=== PATIENT | female | born 1990 | race Hispanic/Latino ===

== ENCOUNTER 2017-12-11 09:47 | Emergency (ER) | payer BC ==
[~2017-12-11] VITALS: Ht 154.9 cm; Wt 68.0 kg
[~2017-12-11 09:47] MED LIST: CLONAZEPAM2 MG PO; LEVORA-281 EACH PO
[2017-12-11] MEDS ORDERED: DEXAMETHASONE SOD PHOS 10 MG/1 ML VIAL INJ ONE (10:30)
[2017-12-11] MEDS ORDERED: DIPHENHYDRAMINE HCL 25 MG CAP PO ONE (10:30)
[2017-12-11] MEDS ORDERED: FAMOTIDINE 20 MG TAB PO ONE (10:30)
[2017-12-11 10:59] VITALS: BP 132/72
== END 2017-12-11 11:02 | disposition home or self-care (01) ==
LOC: ER 09:47
DX: R21 Rash and other nonspecific skin eruption (principal); T78.1XXA Other adverse food reactions, not elsewhere classified, initial encounter; F41.9 Anxiety disorder, unspecified
CPT/HCPCS: 99283; J1100

== ENCOUNTER 2018-01-09 03:50 | Emergency (ER) | payer BC ==
[~2018-01-09] VITALS: Ht 154.9 cm; Wt 68.0 kg
[2018-01-09] MEDS ORDERED: SODIUM CHLORIDE 0.9% 1000ML 1,000 ML IV STA (04:04)
[2018-01-09] MEDS ORDERED: ASPIRIN 81 MG CHEW TAB PO ONE (04:15)
[2018-01-09 04:32] LABS: BASOPHILS % 0.5 % (0.0-1.0); EOSINOPHILS # (AUTO) 0.2 (0.0-0.4); EOSINOPHILS % 2.4 % (0.0-6.0); HEMATOCRIT 41.3 % (34.2-44.1); HEMOGLOBIN 14.3 g/dL (12.0-16.0); LYMPHOCYTES # (AUTO) 2.3 (1.0-3.2); LYMPHOCYTES % 37.7 % (18.0-39.1); MEAN CORPUSCULAR HEMOGLOBIN 31.9 pg (28-32); MEAN CORPUSCULAR HGB CONC 34.6 g/dL (31-35); MEAN CORPUSCULAR VOLUME 92.2 fL (81-99); MONOCYTES # (AUTO) 0.7 (0.2-0.8); MONOCYTES % 10.8 % (4.4-11.3); NEUTROPHILS % 48.4 % (38.7-80.0); PLATELET COUNT 287 x10e3/uL (140-360); RED BLOOD COUNT 4.48 x10e6/uL (3.6-5.1); RED CELL DISTRIBUTION WIDTH 11.9 % (11.7-14.4)
[2018-01-09 04:50] LABS: ALANINE AMINOTRANSFERASE 51 IU/L (0-55); ALBUMIN 4.7 g/dL (3.5-5.0); ALBUMIN/GLOBULIN RATIO 1.5 (0.8-2.0); ALKALINE PHOSPHATASE 57 IU/L (40-150); ANION GAP 16.6 mmol/L (8-16); BLOOD UREA NITROGEN 13 mg/dL (7-26); BUN/CREATININE RATIO 19 (6-25); CARBON DIOXIDE 22 mmol/L (22-29); CHLORIDE 105 mmol/L (98-107); CREATINE KINASE 105 IU/L (29-168); EST GLOMERULAR FILTRATION RATE > 60 ML/MIN (60-); GLUCOSE 110 mg/dL (74-118); POTASSIUM 3.6 mmol/L (3.5-5.1); SODIUM 140 mmol/L (136-145)
[2018-01-09 05:12] LABS: FREE THYROXINE INDEX 2.1024 (1.4-3.8); THYROID STIMULATING HORMONE 3.293 uIU/mL (0.350-4.940)
--- NOTE | 2018-01-09 05:13 | Diagnostic Imaging Report ---
Examination: CT head without contrast Clinical Indication: Tremors, shaking; tachycardia. Technique: Transaxial noncontrast images from the skull base through the vertex were obtained. Sagittal and coronal reformatted images were done. Dose modulation, iterative reconstruction, and/or weight based adjustment of the mA/kV was utilized to reduce the radiation dose to as low as reasonably achievable. Comparison: None. Findings: Scalp: No abnormalities. Bones: Intact. No fractures. No blastic or lytic lesions. Brain sulci: Appropriate for patient's age. Ventricles: Normal in size and configuration. No hydrocephalus. Extra-axial space: No abnormalities. Parenchyma: No abnormal densities. No masses, hemorrhage, or acute or chronic cortical based vascular insults. Suprasellar region: No abnormalities. Craniocervical junction: The foramen magnum is patent. No Chiari one malformation. Impression: No intracranial abnormality. Signed by: Dr. Vale Martin M.D. on 01/09/2018 5:10 AM
[2018-01-09] MEDS ORDERED: LORAZEPAM INJ 2 MG/ML VIAL ONE (05:16)
[2018-01-09] MEDS ORDERED: LORAZEPAM INJ 2 MG/ML VIAL IV ONE (05:30)
== END 2018-01-09 06:49 | disposition home or self-care (01) ==
LOC: ER 03:50
DX: F41.1 Generalized anxiety disorder (principal)
CPT/HCPCS: 36415; 70450; 80053; 82550; 82553; 84436; 84443; 84479; 84484; 85025; 93005; 96374; 99284; J2060; J7030

== ENCOUNTER 2020-01-28 10:09 | Emergency (ER) | payer SELFPAY ==
[~2020-01-28] VITALS: Ht 154.9 cm; Wt 70.3 kg
[2020-01-28] MEDS ORDERED: BELLADONNA ALK/PHENOBARBITAL 5 ML UDC PO ONE (10:30)
[2020-01-28] MEDS ORDERED: MAGNESIUM/ALUMINUM/SIMETHICONE 30 ML UDC PO ONE (10:30)
[2020-01-28] MEDS ORDERED: LIDOCAINE VISC 2% SOLN 15 ML UDC PO ONE (10:30)
[2020-01-28] MEDS ORDERED: LORAZEPAM 1 MG TAB PO ONE (10:45)
--- NOTE | 2020-01-28 12:14 | Emergency Department Note ---
History of Present Illnes History of Present Illness Chief Complaint: General Medicine Complaints History of Present Illness This is a 29 year old female PT STATES SHE BELIEVES SHE IS HAVING ANOTHER ANXIETY ATTACK. PT STATES SHE BELIEVES THAT THIS ANXIETY ATTACK WAS PRECIPITATED FROM "MOLE" SHE ATE LAST NIGHT. PT STATES SHE STARTED HAVING ALOT OF BELCHING AND ACID REFLUX. PT STATES THAT ALL THE BURPING CAUSED HER TO HAVE PALPITATIONS, AND NOW SHE IS HAVING AN ANXIETY ATTACK. PT STATES SHE HAS A HX OF ANXIETY AND PTSD FROM "ROUGH CHILDHOOD". 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 PT STATES HER BIGGEST COMPLAINT IS THE "CONSTANT BURPING AND PALPITATIONS". PT NOTES SHE ALSO WENT TO URGENT CARE TODAY, AND THEN CAME HERE "THEY DIDN'T DO ANYTHING.". Historian: Patient Arrival Mode: Car Gold Letterer Required: No Onset (how long ago): hour(s) Radiation: Reports non-radiation Severity: moderate Onset quality: sudden Timing of current episode: intermittent Progression: waxing and waning Chronicity: chronic Context: Denies recent illness Relieving factors: none Exacerbating factors: none Associated symptoms: Reports denies other symptoms; Denies chest pain, Denies cough, Denies fever/chills, Denies shortness of breath Past Medical/Family History Physician Review I have reviewed the patient's past medical and family history. Any updates have been documented here. Past Medical History Recent Fever: No Clinical Suspicion of Infectio: No New/Unexplained Change in Ment: No Past Medical History: Anxiety Other Medical History: ANXIETY Past Surgical History: None Social History Smoking Cessation: Never Smoker Counseling Performed: No Alcohol Use: None Any Illegal Drug Use: No TB Exposure/Symptoms: No Physically hurt or threatened: No Family History Family history of heart diseas: No Other Last Tetanus: UNK Any Pre-Existing Lines (PICC,: No Review of Systems Review of Systems Constitutional: Reports no symptoms EENTM: Reports no symptoms Cardiovascular: Reports no symptoms Respiratory: Reports no symptoms Gastrointestinal: Reports as per HPI Genitourinary: Reports no symptoms Musculoskeletal: Reports no symptoms Integumentary: Reports no symptoms Neurological: Reports no symptoms Psychological: Reports anxiety Endocrine: Reports no symptoms Hematological/Lymphatic: Reports no symptoms Physical Exam Related Data Allergies: Uncoded Allergies: PORK (Allergy, Unknown, 12/11/17) WATER BASED CONTRAST (Allergy, Unknown, 12/11/17) Triage Vital Signs Vital Signs Date Time Temp Pulse Resp B/P (MAP) Pulse Ox O2 Delivery O2 Flow Rate FiO2 01/28/20 10:19 99.7 105 16 147/95 100 Room Air Vital signs reviewed: Yes Physical Exam CONSTITUTIONAL Constitutional: Present well-developed, Present well-nourished HENT HENT: Present normocephalic, Present atraumatic, Present oropharynx clear/moist, Present nose normal HENT L/R: Present left ext ear normal, Present right ext ear normal EYES Eyes: Reports PERRL, Reports conjunctivae normal NECK Neck: Present ROM normal PULMONARY Pulmonary: Present effort normal, Present breath sounds normal CARDIOVASCULAR Cardiovascular: Present regular rhythm, Present heart sounds normal, Present capillary refill normal, Present normal rate GASTROINTESTINAL Abdominal: Present soft, Present nontender, Present bowel sounds normal GENITOURINARY Genitourinary: Present exam deferred SKIN Skin: Present warm, Present dry MUSCULOSKELETAL Musculoskeletal: Present ROM normal NEUROLOGICAL Neurological: Present alert, Present oriented x 3, Present no gross motor or sensory deficits PSYCHOLOGICAL Psychological: Present mood/affect normal, Present judgement normal, Present other (ANXIOUS) Assessment & Plan Medical Decision Making MDM ANXIETY, NO CP/SOB Reassessment Reassessment IMPROVED WITH ATIVAN PO, GI COCKTAIL. DC HOME, ATARAX, OTC PEPCID COMPLETE, F/U PCP Assessment & Plan Final Impression: (1) Anxiety (2) GERD (gastroesophageal reflux disease) Depart Disposition: HOME, SELF-CARE Last Vital Signs Date Time Temp Pulse Resp B/P (MAP) Pulse Ox O2 Delivery O2 Flow Rate FiO2 01/28/20 10:19 99.7 105 16 147/95 100 Room Air Home Meds Reported Medications Levonorgestrel-Eth Estradiol (LEVORA-28) 1 Each Tablet, 1 TAB PO DAILY 03/06/13 Medications in the ED Magnesium Aluminum Silicate 30 ml ONCE ONCE PO Last administered on 01/28/20at 10:55; Admin Dose 30 ML; Start 01/28/20 at 10:30; Stop 01/28/20 at 10:40; Status DC Belladonna Alkaloids/ Phenobarbital 10 ml ONCE ONCE PO Last administered on 01/28/20at 10:55; Admin Dose 10 ML; Start 01/28/20 at 10:30; Stop 01/28/20 at 10:40; Status DC Lidocaine HCl 5 ml ONCE ONCE PO Last administered on 01/28/20at 10:55; Admin Dose 5 ML; Start 01/28/20 at 10:30; Stop 01/28/20 at 10:40; Status DC Lorazepam 1 mg ONCE ONCE PO Last administered on 01/28/20at 10:55; Admin Dose 1 MG; Start 01/28/20 at 10:45; Stop 01/28/20 at 10:46; Status DC MOON BENNETT MD Jan 28, 2020 12:14
[2020-01-28 12:26] VITALS: BP 128/74
--- OUTSIDE RECORDS SUMMARY | 2020-01-29 10:04 | XMS REPORT | Continuity of Care Document ---
Author Author [facility] t Organization [facility] Address [address] [place] [address] Phone Unavailable Care Team Providers Care Mine Engineering Supervisor Name Role Phone David DURHAM PCP Rico PARADA Unavailable Payers Payer Name Policy Type Policy Number Effective Date Expiration Date [facility] Ppo [id number] 2015 00:00:00 [facility] Problems Condition Name Condition Details Condition Category Status Onset Date Resolution Date Last Treatment Date Treating Clinician Comments Source Anxiety Problem Active [facility] Gastroesophageal reflux disease Problem Active [facility] Allergies, Adverse Reactions, Alerts Allergy Name Allergy Type Status Severity Reaction(s) Onset Date Inacti ve Date Treating Clinician Comments Source iodine DA Active [place] 2018-12-05 00:00:00 [facility] pork derived (porcine) FA Active SV 2018-12-05 00:00:00 [facility] PORK Allergy to substance Active 2017-12-11 00:00:00 [facility] WATER BASED CONTRAST Allergy to substance Active 2017-12-11 00:00:00 [facility] iodine DA Active MO 2014-08-02 00:00:00 [facility] Social History Social Habit Start Date Stop Date Quantity Comments Source Sex Assigned At 1990 00:00:00 1990 00:00:00 Female [facility] Medications Ordered Medication Name Filled Medication Name Start Date Stop Da te Current Medication? Ordering Clinician Indication Dosage Frequency Signature (SIG) Comments Components Source Levonorgestrel-Eth Estradiol (Levora-28) 1 Each TABLET Levonorgestrel-Eth Estradiol (Levora-28) 1 Each TABLET Yes 1 Lalito simpson [facility] Clonazepam Clonazepam 2015-05-02 00:00:00 No 2 Zoila ly [facility] Vital Signs Vital Name Observation Time Observation Value Comments Source Heart Rate 2020-01-28 12:26:00 101 /min [facility] Respiratory rate 2020-01-28 12:26:00 16 /min [facility] BP Systolic 2020-01-28 12:26:00 128 mm[Hg] [facility] BP Diastolic 2020-01-28 12:26:00 74 mm[Hg] [facility] Oxygen saturation by Pulse oximetry 2020-01-28 12:26:00 99 /min [facility] Weight 2020-01-28 10:19:00 155 [lb_av] [facility] BMI (Body Mass Index) 2020-01-28 10:19:00 29.3 kg/m2 [facility] Procedures This patient has no known procedures. Plan of Care Planned Activity Planned Date Details Comments Source Instructions Generalized Anxiety Disorder [facility] Instructions Heartburn [facility] Encounters Start Date/Time End Date[facility] En[facility] ID Source 2020-01-28 10:21:00 2020-01-28 12:28:00 Departed Emergency Room [facility] [id number] [facility] 2017-12-11 09:47:00 2017-12-11 11:02:00 Departed Emergency Room [facility] [id number] [facility] Results Test Description Test Time Test Comments Results Result Comments Source CT BRAIN WO 2018-01-09 05:08:00 [facility] [address] [address] Patient Name: ANGELIKA HONEYCUTT MR #: [id number] : 1990 Age/Sex: 27/F Req #: [id number] Adm Physician: Ordered by: LESLIE PARADA MD Report #: [id number] Location: ER Room/Bed: Procedure: [id number] CT/CT BRAIN WO Exam Date: Exam Time: REPORT STATUS: Signed Examination: CT head without contrast Clinical Indication: Tremors, shaking; tachycardia. Technique: Transaxial noncontrast images from the skull base through the vertex were obtained. Sagittal and coronal reformatted images were done. Dose modulation, iterative reconstru ction, and/or weight based adjustment of the mA/kV was utilized to reduce the radiation dose to as low as reasonably achievable. Comparison: None. Findings: Scalp: No abnormalities. Bones: Intact. No fractures. No blastic or lytic lesions. Brain sulci: Appropriate for patient's age. Ventricles: Normal in size and configuration. No hydrocephalus. Extra- axial space: No abnormalities. Parenchyma: No abnormal densities. No masses, hemorrhage, or acute or chronic cortical based vascular insults. Suprasellar region: No abnormalities. Craniocervical junction: The foramen magnum is patent. No Chiari one malformation. Impression: No intracranial abnormality. Signed by: Dr. Vale Martin M.D. on 01/09/2018 5:10 AM Dictated By: VALE RACHEL MD 9 Transcribed By: JAMES on 01/09/18509 COPY TO: LESLIE PARADA MD
== END 2020-01-28 12:28 | disposition home or self-care (01) ==
LOC: ER 10:21
DX: F41.9 Anxiety disorder, unspecified (principal); K21.9 Gastro-esophageal reflux disease without esophagitis
CPT/HCPCS: 99282

== ENCOUNTER 2020-02-02 17:53 | Emergency (ER) | payer SELFPAY ==
[~2020-02-02] VITALS: Ht 154.9 cm; Wt 70.3 kg
[2020-02-02] MEDS ORDERED: PANTOPRAZOLE 40 MG 10ML VIAL IV STA (18:08)
[2020-02-02] MEDS ORDERED: ONDANSETRON HCL INJ 2MG/ML 2ML 2 MG/ML VIAL IV STA (18:08)
--- NOTE | 2020-02-02 18:12 | Emergency Department Note ---
History of Present Illnes History of Present Illness Chief Complaint: Abdominal Complaints History of Present Illness This is a 29 year old female WITH COMPLAINTS OF NAUSEA, AND GERD X 1 WEEK; PATIENT STATES THAT SHE WAS SEEN LAST FRIDAY FOR THE SAME AND GIVEN PEPCID. PATIENT STATES THAT TODAY SHE HAD DIARRHEA, NAUSEA, AND BELCHING. PATIENT APPEARS ANXIOUS, RESP EVEN AND NONLABORED, RESP EVEN AND NONLABORED, RATES PAIN /10 . Historian: Patient Arrival Mode: Car Dental Assistant Teacher Required: No Onset (how long ago): day(s) (1) Location: upper abd Quality: n/v/d, pain, belching Radiation: Reports non-radiation Severity: moderate Onset quality: gradual Duration (how long): day(s) (7) Timing of current episode: constant Progression: worsening Chronicity: new Context: Denies recent illness, Denies recent surgery Relieving factors: none Exacerbating factors: none Associated symptoms: Reports nausea/vomiting (diarrhea) Treatments prior to arrival: none Past Medical/Family History Physician Review I have reviewed the patient's past medical and family history. Any updates have been documented here. Past Medical History Recent Fever: Yes Clinical Suspicion of Infectio: Yes New/Unexplained Change in Ment: No Past Medical History: Anxiety Other Medical History: ANXIETY Past Surgical History: Cholecysctectomy Social History Smoking Cessation: Never Smoker Alcohol Use: None Any Illegal Drug Use: No Physically hurt or threatened: No Family History Family history of heart diseas: No Other Last Tetanus: UNK Review of Systems Review of Systems Constitutional: Reports no symptoms EENTM: Reports no symptoms Cardiovascular: Reports no symptoms Respiratory: Reports no symptoms Gastrointestinal: Reports as per HPI Genitourinary: Reports no symptoms Musculoskeletal: Reports no symptoms Integumentary: Reports no symptoms Neurological: Reports no symptoms Psychological: Reports no symptoms Endocrine: Reports no symptoms Hematological/Lymphatic: Reports no symptoms Physical Exam Related Data Allergies: Coded Allergies: Pork/Porcine Containing Products (Verified Allergy, Severe, 02/02/20) gadoterate meglumine (Verified Allergy, Severe, 02/02/20) Uncoded Allergies: PORK (Allergy, Unknown, 12/11/17) WATER BASED CONTRAST (Allergy, Unknown, 12/11/17) Triage Vital Signs Vital Signs Date Time Temp Pulse Resp B/P (MAP) Pulse Ox O2 Delivery O2 Flow Rate FiO2 02/02/20 18:00 100.3 130 20 154/107 100 Room Air Vital signs reviewed: Yes Physical Exam CONSTITUTIONAL Constitutional: Present well-developed, Present well-nourished, Present other (anxious) HENT HENT: Present normocephalic, Present atraumatic, Present oropharynx clear/moist, Present nose normal HENT L/R: Present left ext ear normal, Present right ext ear normal EYES Eyes: Reports PERRL, Reports conjunctivae normal NECK Neck: Present ROM normal PULMONARY Pulmonary: Present effort normal, Present breath sounds normal CARDIOVASCULAR Cardiovascular: Present regular rhythm, Present heart sounds normal, Present capillary refill normal, Present tachycardia (125) GASTROINTESTINAL Abdominal: Present soft, Present bowel sounds normal, Present tender (epigastric) GENITOURINARY Genitourinary: Present exam deferred SKIN Skin: Present warm, Present dry MUSCULOSKELETAL Musculoskeletal: Present ROM normal NEUROLOGICAL Neurological: Present alert, Present oriented x 3, Present no gross motor or sensory deficits PSYCHOLOGICAL Psychological: Present mood/affect normal, Present judgement normal Results Laboratory Laboratory Laboratory Tests Test 02/03/20 02:26 02/02/20 22:22 02/02/20 21:40 02/02/20 19:15 Lactic Acid Level 1.8 mmol/L (0.5-2.0) 3.8 mmol/L (0.5-2.0) Coronavirus (PCR) Not detected (NOTDETECTED) Urine Color Yellow (YELLOW) Urine Clarity Clear (CLEAR) Urine pH 6 (5 - 7) Urine Specific [place] 1.020 (1.010-1.025) Urine Protein Negative (NEGATIVE) Urine Glucose (UA) Negative (NEGATIVE) Urine Ketones 1+ (NEGATIVE) Urine Blood Negative (NEGATIVE) Urine Nitrite Negative (NEGATIVE) Urine Bilirubin Negative (NEGATIVE) Urine Urobilinogen 0.2 mg/dL (0.2 - 1) Urine Leukocyte Esterase Negative (NEGATIVE) Urine RBC 0-5 /HPF (0-5) Urine WBC 0-5 /HPF (0-5) Urine Epithelial Cells Rare /LPF (NONE) Urine Bacteria None /HPF (NONE) Urine Opiates Screen Negative (NEGATIVE) Urine Methadone Screen Negative (NEGATIVE) Urine Barbiturates Screen Negative (NEGATIVE) Urine Phencyclidine Screen Negative (NEGATIVE) Urine Amphetamines Screen Negative (NEGATIVE) Urine Methamphetamines Screen Negative (NEGATIVE) Urine Benzodiazepines Screen Negative (NEGATIVE) Urine Cocaine Screen Negative (NEGATIVE) Urine Cannabinoids Screen Negative (NEGATIVE) Test 02/02/20 18:24 02/02/20 18:21 Influenza Virus Types A,B Antigen Negative (NEGATIVE) White Blood Count 5.46 x10e3/uL (4.8-10.8) Red Blood Count 4.72 x10e6/uL (3.6-5.1) Hemoglobin 14.7 g/dL (12.0-16.0) Hematocrit 43.4 % (34.2-44.1) Mean Corpuscular Volume 91.9 fL (81-99) Mean Corpuscular Hemoglobin 31.1 pg (28-32) Mean Corpuscular Hemoglobin Concent 33.9 g/dL (31-35) Red Cell Distribution Width 11.9 % (11.7-14.4) Platelet Count 319 x10e3/uL (140-360) Neutrophils (%) (Auto) 52.2 % (38.7-80.0) Lymphocytes (%) (Auto) 38.8 % (18.0-39.1) Monocytes (%) (Auto) 7.5 % (4.4-11.3) Eosinophils (%) (Auto) 0.9 % (0.0-6.0) Basophils (%) (Auto) 0.4 % (0.0-1.0) Neutrophils # (Auto) 2.9 (2.1-6.9) Lymphocytes # (Auto) 2.1 (1.0-3.2) Monocytes # (Auto) 0.4 (0.2-0.8) Eosinophils # (Auto) 0.1 (0.0-0.4) Basophils # (Auto) 0.0 (0.0-0.1) Absolute Immature Granulocyte (auto 0.01 x10e3/uL (0-0.1) Sodium Level 141 mmol/L (136-145) Potassium Level 3.5 mmol/L (3.5-5.1) Chloride Level 104 mmol/L (98-107) Carbon Dioxide Level 22 mmol/L (22-29) Anion Gap 18.5 mmol/L (8-16) Blood Urea Nitrogen 8 mg/dL (7-26) Creatinine 0.70 mg/dL (0.57-1.11) Estimat Glomerular Filtration Rate > 60 ML/MIN (60-) BUN/Creatinine Ratio 11 (6-25) Glucose Level 105 mg/dL (74-118) Lactic Acid Level 2.9 mmol/L (0.5-2.0) Calcium Level 10.3 mg/dL (8.4-10.2) Total Bilirubin 0.3 mg/dL (0.2-1.2) Aspartate Amino Transf (AST/SGOT) 41 IU/L (5-34) Alanine Aminotransferase (ALT/SGPT) < 6 IU/L (0-55) Alkaline Phosphatase 56 IU/L (40-150) Total Protein 9.0 g/dL (6.5-8.1) Albumin < 0.4 g/dL (3.5-5.0) Globulin 8.6 g/dL (2.3-3.5) Albumin/Globulin Ratio 0.0 (0.8-2.0) Amylase Level 46 U/L (25-125) Lipase 21 U/L (8-78) Thyroid Stimulating Hormone (TSH) 1.372 uIU/mL (0.350-4.940) Free Thyroxine Index 2.0256 (1.4-3.8) Thyroxine (T4) 8.54 ug/dL (4.5-10.9) Triiodothyronine (T3) Uptake 23.72 % (22.5-37.0) Human Chorionic Gonadotropin, Qual Negative (NEGATIVE) Lab results reviewed: Yes Imaging Imaging results reviewed: Yes Impressions Procedure: [id number] CT/CT ABDOMEN/PELVIS W Exam Date: 02/02/20 Exam Time: 2013 REPORT STATUS: Signed EXAM: CT Abdomen and Pelvis WITH contrast INDICATION: ^abd pain ^[id number] ^2013 ^Y COMPARISON: None. TECHNIQUE: Abdomen and pelvis were scanned utilizing a multidetector helical scanner from the lung base to the pubic symphysis after administration of IV contrast. Coronal and sagittal reformations were obtained. Dose modulation, iterative reconstruction, and/or weight based adjustment of the mA/kV was utilized to reduce the radiation dose to as low as reasonably achievable. Routine protocol was performed. Scan was performed when during portal venous phase. IV CONTRAST: 100 mL of Isovue-370 ORAL CONTRAST: None COMPLICATIONS: None RADIATION DOSE: Total DLP: 706.39 mGy*cm Estimated effective dose: (DLP x 0.015 x size factor) mSv CTDIvol has been reviewed. It is below the limits set by the Radiation Protocol Committee (RPC). FINDINGS: LINES and TUBES: None. LOWER THORAX: Unremarkable HEPATOBILIARY: No focal hepatic lesions. No biliary ductal dilation. GALLBLADDER: Surgically absent. SPLEEN: No splenomegaly. PANCREAS: No focal masses or ductal dilatation. ADRENALS: No adrenal nodules KIDNEYS/URETERS: Kidneys enhance symmetrically. No hydronephrosis. No cystic or solid mass lesions. No stones. GI TRACT: No abnormal distention, wall thickening, or evidence of bowel obstruction. Appendix is normal. PELVIC ORGANS/BLADDER: Unremarkable. Retroverted uterus. LYMPH NODES: No lymphadenopathy. VESSELS: Unremarkable. PERITONEUM / RETROPERITONEUM: No free air or fluid. BONES: Unremarkable. SOFT TISSUES: Unremarkable. IMPRESSION: 1. No acute inflammatory process in the abdomen/pelvis. Signed by: Dr. Brent Cm MD on 02/02/2020 9:15 PM Dictated By: BRENT CM MD 14 Transcribed By: JAMES on 02/02/202114 COPY TO: CAROLYN JUNIOR MD~ Procedure: [id number] DX/CHEST SINGLE (PORTABLE) Exam Date: 02/02/20 Exam Time: 1834 REPORT STATUS: Signed EXAMINATION: CHEST SINGLE (PORTABLE) INDICATION: Fever. COMPARISON: None FINDINGS: TUBES and LINES: None. LUNGS: Patchy density in the right lung base may represent atelectasis versus developing infection in the proper clinical setting. Recommend chest PA and lateral views of patient's condition permits. PLEURA: No pleural effusion or pneumothorax. HEART AND MEDIASTINUM: The cardiomediastinal silhouette is unremarkable. BONES AND SOFT TISSUES: No acute osseous lesion. Soft tissues are unremarkable. UPPER ABDOMEN: No free air under the diaphragm. IMPRESSION: Right lung base atelectasis versus developing infection. Recommend chest PA and lateral views of patient's condition permits. Signed by: Dr. Nancy Vogt M.D. on 02/02/2020 6:58 PM Dictated By: NADJA VOGT MD, MD 57 Transcribed By: JAMES on 02/02/201857 COPY TO: CAROLYN JUNIOR MD~ Procedures 12 Lead ECG Interpretation ECG Interpretation : ECG: ECG 1 Dental Assistant Teacher: Interpreted by ED physician Date: Feb 02, 2020 Time: 18:11 Rhythm: sinus tachycardia Rate: tachycardia BPM: 120 QRS axis: normal ST segments normal: Yes T waves normal: Yes Q waves: V1 Clinical Impression: abnormal ECG Assessment & Plan Medical Decision Making MDM pt with upper abd pain, n/v/d and having anxiety cbc, cmp, thyroid panel, amylase, lipase, ua, cxr, ekg ordered to eval for arrhythmia, pancreatitis, hyperthryoid, pneumonia, electrolyte abnormality, uti zofran 4 mg iv ordered protonix 40 mg iv ordered ativan 1 mg iv ordered ns 1 liter bolus iv ordered PT WITH ELEVATED LACTIC ACID, NO SOURCE OF INFECTION, LACTIC ACIDOSIS IS NOT INFECTION RELATED after hydration lactic acid returned to normal Assessment & Plan Final Impression: (1) Volume depletion (2) Lactic acidosis (3) Anxiety (4) GERD (gastroesophageal reflux disease) Depart Disposition: HOME, SELF-CARE Last Vital Signs Date Time Temp Pulse Resp B/P (MAP) Pulse Ox O2 Delivery O2 Flow Rate FiO2 02/02/20 18:00 100.3 130 20 154/107 100 Room Air Home Meds Reported Medications Levonorgestrel-Eth Estradiol (LEVORA-28) 1 Each Tablet, 1 TAB PO DAILY 03/06/13 Medications in the ED Pantoprazole Sodium 40 mg NOW STAT IV ; Start 02/02/20 at 18:08; Stop 02/01 at 18:09; Status UNV Ondansetron HCl 4 mg NOW STAT IV ; Start 02/02/20 at 18:08; Stop 02/02/20 at 18:09; Status UNV Sodium Chloride 1,000 ml @ 999 mls/hr Q1H1M ONCE IV ; Start 02/02/20 at 18:15; Stop 02/02/20 at 19:15 CAROLYN JUNIOR MD Feb 02, 2020 18:12
[2020-02-02] MEDS ORDERED: LORAZEPAM INJ 2 MG/ML VIAL IV ONE (18:15)
[2020-02-02] MEDS ORDERED: ACETAMINOPHEN 325 MG TAB PO ONE (18:15)
[2020-02-02] MEDS ORDERED: SODIUM CHLORIDE 0.9% 1000ML 1,000 ML IV ONE ×3 (18:15→22:15)
--- OUTSIDE RECORDS SUMMARY | 2020-02-02 18:33 | XMS REPORT | Continuity of Care Document ---
Author Author [facility] t Organization [facility] Address [address] [place] [address] Phone Unavailable Care Team Providers Care Dock Attendant Name Role Phone David DURHAM PCP Rico PARADA Unavailable Payers Payer Name Policy Type Policy Number Effective Date Expiration Date [facility] Ppo [id number] 2015 00:00:00 [facility] Problems Condition Name Condition Details Condition Category Status Onset Date Resolution Date Last Treatment Date Treating Clinician Comments Source Anxiety Problem Active [facility] Gastroesophageal reflux disease Problem Active [facility] Allergies, Adverse Reactions, Alerts Allergy Name Allergy Type Status Severity Reaction(s) Onset Date Inacti ve Date Treating Clinician Comments Source iodine DA Active [place] 2018-12-05 00:00:00 [facility] pork derived (porcine) FA Active SV 2018-12-05 00:00:00 [facility] PORK Allergy to substance Active 2017-12-11 00:00:00 [facility] WATER BASED CONTRAST Allergy to substance Active 2017-12-11 00:00:00 [facility] iodine DA Active [place] 2014-08-02 00:00:00 [facility] Social History Social Habit Start Date Stop Date Quantity Comments Source Sex Assigned At [birth year] 00:00:00 Female [facility] Medications Ordered Medication Name Filled Medication Name Start Date Stop Da te Current Medication? Ordering Clinician Indication Dosage Frequency Signature (SIG) Comments Components Source Levonorgestrel-Eth Estradiol (Levora-28) 1 Each TABLET Levonorgestrel-Eth Estradiol (Levora-28) 1 Each TABLET Yes 1 Lalito simpson [facility] Clonazepam Clonazepam 2015-05-02 00:00:00 No 2 Zoila ly [facility] Vital Signs Vital Name Observation Time Observation Value Comments Source Heart Rate 2020-01-28 12:26:00 101 /min [facility] Respiratory rate 2020-01-28 12:26:00 16 /min [facility] BP Systolic 2020-01-28 12:26:00 128 mm[Hg] [facility] BP Diastolic 2020-01-28 12:26:00 74 mm[Hg] [facility] Oxygen saturation by Pulse oximetry 2020-01-28 12:26:00 99 /min [facility] Weight 2020-01-28 10:19:00 155 [lb_av] [facility] BMI (Body Mass Index) 2020-01-28 10:19:00 29.3 kg/m2 [facility] Procedures This patient has no known procedures. Plan of Care Planned Activity Planned Date Details Comments Source Instructions Generalized Anxiety Disorder [facility] Instructions Heartburn [facility] Encounters Start Date/Time End Date/Time Encounter Type [facility] ID Source 2020-01-28 10:21:00 2020-01-28 12:28:00 Departed Emergency Room [facility] [id number] [facility] 2017-12-11 09:47:00 2017-12-11 11:02:00 Departed Emergency Room [facility] [id number] [facility] Results Test Description Test Time Test Comments Results Result Comments Source CT BRAIN WO 2018-01-09 05:08:00 [facility] [address] [address] Patient Name: ANGELIKA HONEYCUTT MR #: [id number] : 1990 Age/Sex: 27/F Req #: [id number] Adm Physician: Ordered by: LESLIE PARADA MD Report #: [id number] Location: ER Room/Bed: Procedure: [id number] CT/CT BRAIN WO Exam Date: Exam Time: [...]
[2020-02-02 18:43] LABS: BASOPHILS % 0.4 % (0.0-1.0); EOSINOPHILS # (AUTO) 0.1 (0.0-0.4); EOSINOPHILS % 0.9 % (0.0-6.0); HEMATOCRIT 43.4 % (34.2-44.1); HEMOGLOBIN 14.7 g/dL (12.0-16.0); LYMPHOCYTES # (AUTO) 2.1 (1.0-3.2); LYMPHOCYTES % 38.8 % (18.0-39.1); MEAN CORPUSCULAR HEMOGLOBIN 31.1 pg (28-32); MEAN CORPUSCULAR HGB CONC 33.9 g/dL (31-35); MEAN CORPUSCULAR VOLUME 91.9 fL (81-99); MONOCYTES # (AUTO) 0.4 (0.2-0.8); MONOCYTES % 7.5 % (4.4-11.3); NEUTROPHILS # (AUTO) 2.9 (2.1-6.9); NEUTROPHILS % 52.2 % (38.7-80.0); PLATELET COUNT 319 x10e3/uL (140-360); RED BLOOD COUNT 4.72 x10e6/uL (3.6-5.1); RED CELL DISTRIBUTION WIDTH 11.9 % (11.7-14.4)
--- NOTE | 2020-02-02 19:01 | Diagnostic Imaging Report ---
EXAMINATION: CHEST SINGLE (PORTABLE) INDICATION: Fever. COMPARISON: None FINDINGS: TUBES and LINES: None. LUNGS: Patchy density in the right lung base may represent atelectasis versus developing infection in the proper clinical setting. Recommend chest PA and lateral views of patient's condition permits. PLEURA: No pleural effusion or pneumothorax. HEART AND MEDIASTINUM: The cardiomediastinal silhouette is unremarkable. BONES AND SOFT TISSUES: No acute osseous lesion. Soft tissues are unremarkable. UPPER ABDOMEN: No free air under the diaphragm. IMPRESSION: Right lung base atelectasis versus developing infection. Recommend chest PA and lateral views of patient's condition permits. Signed by: Dr. Nancy Mejias M.D. on 02/02/2020 6:58 PM
[2020-02-02 19:04] LABS: ALKALINE PHOSPHATASE 56 IU/L (40-150); ANION GAP 18.5 mmol/L (8-16); BLOOD UREA NITROGEN 8 mg/dL (7-26); BUN/CREATININE RATIO 11 (6-25); CALCIUM 10.3 mg/dL (8.4-10.2); CARBON DIOXIDE 22 mmol/L (22-29); CHLORIDE 104 mmol/L (98-107); EST GLOMERULAR FILTRATION RATE > 60 ML/MIN (60-); GLUCOSE 105 mg/dL (74-118); POTASSIUM 3.5 mmol/L (3.5-5.1); SODIUM 141 mmol/L (136-145)
[2020-02-02 19:12] LABS: ALANINE AMINOTRANSFERASE < 6 IU/L (0-55); ALBUMIN < 0.4 g/dL (3.5-5.0)
[2020-02-02 19:25] LABS: THYROID STIMULATING HORMONE 1.372 uIU/mL (0.350-4.940)
[2020-02-02 19:34] LABS: CLARITY,URINE CLEAR (CLEAR); COLOR,URINE YELLOW (YELLOW); KETONES,URINE 1+ (NEGATIVE); LEUKOCYTE ESTERASE ,URINE NEGATIVE (NEGATIVE); NITRITE,URINE NEGATIVE (NEGATIVE); PROTEIN,URINE DIPSTICK NEGATIVE (NEGATIVE)
[2020-02-02 19:35] LABS: AMPHETAMINES SCREEN,URINE NEGATIVE (NEGATIVE); BENZODIAZEPINES SCREEN,URINE NEGATIVE (NEGATIVE); BILIRUBIN,URINE NEGATIVE (NEGATIVE); PHENCYCLIDINE SCREEN,URINE NEGATIVE (NEGATIVE); URINE UROBILINOGEN 0.2 mg/dL (0.2 - 1)
[2020-02-02 19:37] LABS: AMYLASE 46 U/L (25-125); LIPASE 21 U/L (8-78)
[2020-02-02 19:44] LABS: EPITHELIAL CELLS,URINE RARE /LPF; RBC,URINE 0-5 /HPF (0-5); WBC,URINE (MAN) 0-5 /HPF (0-5)
[2020-02-02] MEDS ORDERED: IOPAMIDOL 370 MG/ML 200 ML INFUS..BTL INJ ONE (20:09)
[2020-02-02] MEDS ORDERED: SODIUM CHLORIDE 0.9% 50ML 50 ML ONE (20:09)
--- NOTE | 2020-02-02 21:19 | Diagnostic Imaging Report ---
EXAM: CT Abdomen and Pelvis WITH contrast INDICATION: ^abd pain ^[id number] ^2013 ^Y COMPARISON: None. TECHNIQUE: Abdomen and pelvis were scanned utilizing a multidetector helical scanner from the lung base to the pubic symphysis after administration of IV contrast. Coronal and sagittal reformations were obtained. Dose modulation, iterative reconstruction, and/or weight based adjustment of the mA/kV was utilized to reduce the radiation dose to as low as reasonably achievable. Routine protocol was performed. Scan was performed when during portal venous phase. IV CONTRAST: 100 mL of Isovue-370 ORAL CONTRAST: None COMPLICATIONS: None RADIATION DOSE: Total DLP: 706.39 mGy*cm Estimated effective dose: (DLP x 0.015 x size factor) mSv CTDIvol has been reviewed. It is below the limits set by the Radiation Protocol Committee (RPC). FINDINGS: LINES and TUBES: None. LOWER THORAX: Unremarkable HEPATOBILIARY: No focal hepatic lesions. No biliary ductal dilation. GALLBLADDER: Surgically absent. SPLEEN: No splenomegaly. PANCREAS: No focal masses or ductal dilatation. ADRENALS: No adrenal nodules KIDNEYS/URETERS: Kidneys enhance symmetrically. No hydronephrosis. No cystic or solid mass lesions. No stones. GI TRACT: No abnormal distention, wall thickening, or evidence of bowel obstruction. Appendix is normal. PELVIC ORGANS/BLADDER: Unremarkable. Retroverted uterus. LYMPH NODES: No lymphadenopathy. VESSELS: Unremarkable. PERITONEUM / RETROPERITONEUM: No free air or fluid. BONES: Unremarkable. SOFT TISSUES: Unremarkable. IMPRESSION: 1. No acute inflammatory process in the abdomen/pelvis. Signed by: Dr. Brent Clemons MD on 02/02/2020 9:15 PM
[2020-02-03 03:27] VITALS: BP 131/83
== END 2020-02-03 03:15 | disposition home or self-care (01) ==
LOC: ER 18:05
DX: E86.9 Volume depletion, unspecified (principal); R50.9 Fever, unspecified; E87.2 Acidosis; K21.9 Gastro-esophageal reflux disease without esophagitis; F41.9 Anxiety disorder, unspecified; Z20.828 Contact with and (suspected) exposure to other viral communicable diseases
CPT/HCPCS: 36415; 71045; 74177; 80053; 80307; 81001; 82150; 83605; 83690; 84436; 84443; 84479; 84702; 85025; 87400; 93005; 99284; C9113; J2060; J2405; J7030; Q9967; U0002

== ENCOUNTER 2023-11-06 01:24 | Observation (INO) | payer SELFPAY ==
[2023-11-06] VITALS (13 sets, daily range): BP systolic 136–149; BP diastolic 74–91; PULSE 72–102; RESP 14–18; TEMP 97.8–99.4; O2SAT 97–100
[~2023-11-06] VITALS: Ht 154.9 cm; Wt 74.8 kg
[2023-11-06 01:44] LABS: BASOPHILS % 0.4 % (0.0-1.0); EOSINOPHILS % 0.1 % (0.0-6.0); HEMATOCRIT 41.8 % (34.2-44.1); LYMPHOCYTES # (AUTO) 1.5 (1.0-3.2); LYMPHOCYTES % 18.1 % (18.0-39.1); MEAN CORPUSCULAR HEMOGLOBIN 31.8 pg (28-32); MEAN CORPUSCULAR HGB CONC 33.5 g/dL (31-35); MONOCYTES # (AUTO) 0.8 (0.2-0.8); MONOCYTES % 9.2 % (4.4-11.3); NEUTROPHILS # (AUTO) 5.9 (2.1-6.9); PLATELET COUNT 311 x10e3/uL (140-360); RED CELL DISTRIBUTION WIDTH 12.3 % (11.7-14.4); WHITE BLOOD COUNT 8.17 x10e3/uL (4.8-10.8)
[2023-11-06 02:15] LABS: ALBUMIN 4.6 g/dL (3.5-5.0); ALBUMIN/GLOBULIN RATIO 1.3 (0.8-2.0); ANION GAP 16.5 mmol/L (8-16); BILIRUBIN,TOTAL 1.3 mg/dL (0.2-1.2); CALCIUM 9.5 mg/dL (8.4-10.2); CREATININE, SERUM 0.71 mg/dL (0.57-1.11); POTASSIUM 3.5 mmol/L (3.5-5.1); TOTAL PROTEIN 8.1 g/dL (6.5-8.1)
[2023-11-06] MEDS: SODIUM CHLORIDE 0.9% 1000ML 1,000 ML IV SCH (02:50)
[2023-11-06] MEDS: Morphine 4mg INJECTION 4 MG/ML INJ IV PRN (03:54)
[2023-11-06] MEDS: ONDANSETRON HCL INJ 2MG/ML 2ML 2 MG/ML VIAL IV PRN (03:55)
[2023-11-06] MEDS ORDERED: KURVELO-28 TAB1 EAC1 PO (04:44)
[2023-11-06] MEDS ORDERED: DIPHENHYDRAMINE HCL 25 MG CAP PO PRN (11:45)
[2023-11-06] MEDS ORDERED: HYDRALAZINE HCL 20 MG/ML VIAL IV PRN (11:45)
[2023-11-06] MEDS ORDERED: ONDANSETRON HCL INJ 2MG/ML 2ML 2 MG/ML VIAL IV PRN (11:45)
[2023-11-06] MEDS ORDERED: POTASSIUM CHLORIDE 20 MEQ TAB CR PO PRN (11:45)
[2023-11-06] MEDS ORDERED: ALBUTEROL/IPRATROPIUM 3 ML NEB NEB PRN (11:45)
[2023-11-06] MEDS ORDERED: LIDOCAINE 4% PATCH TP PRN (11:45)
[2023-11-06] MEDS ORDERED: DEXTROSE 50% SYRINGE 50 ML IV PRN (11:45)
[2023-11-06] MEDS ORDERED: SIMETHICONE 80 MG CHEW PO PRN (11:45)
[2023-11-06] MEDS ORDERED: DOCUSATE SODIUM 100 MG CAP PO PRN (11:45)
[2023-11-06] MEDS ORDERED: BENZONATATE 100 MG CAP PO PRN (11:45)
[2023-11-06 12:29] LABS: ALBUMIN 3.9 g/dL (3.5-5.0); ALBUMIN/GLOBULIN RATIO 1.3 (0.8-2.0); ANION GAP 14.7 mmol/L (8-16); BILIRUBIN,TOTAL 1.9 mg/dL (0.2-1.2); CALCIUM 8.6 mg/dL (8.4-10.2); CREATININE, SERUM 0.72 mg/dL (0.57-1.11); POTASSIUM 3.7 mmol/L (3.5-5.1); TOTAL PROTEIN 6.9 g/dL (6.5-8.1)
[2023-11-06] MEDS ORDERED: TRAMADOL HCL 50 MG TAB PO PRN (12:30)
[2023-11-06] MEDS ORDERED: Morphine 4mg INJECTION 4 MG/ML INJ IV PRN (14:30)
[2023-11-06] MEDS: SUCRALFATE 1 GM/10 ML SUSP NG SCH (16:31)
[2023-11-06] MEDS: PANTOPRAZOLE SOD 40 MG TABEC PO SCH (16:31)
[2023-11-06] MEDS ORDERED: ENOXAPARIN SOD INJ 40 MG/0.4 ML SYR SC SCH (17:00)
[2023-11-07] VITALS (7 sets, daily range): BP systolic 139–148; BP diastolic 84–96; PULSE 77–104; RESP 17–20; TEMP 97.9–98.4; O2SAT 98–100
[2023-11-07 06:03] LABS: BASOPHILS % 0.3 % (0.0-1.0); EOSINOPHILS # (AUTO) 0.1 (0.0-0.4); EOSINOPHILS % 1.3 % (0.0-6.0); HEMATOCRIT 39.3 % (34.2-44.1); HEMOGLOBIN 12.5 g/dL (12.0-16.0); LYMPHOCYTES # (AUTO) 1.7 (1.0-3.2); LYMPHOCYTES % 28.1 % (18.0-39.1); MEAN CORPUSCULAR HEMOGLOBIN 31.6 pg (28-32); MEAN CORPUSCULAR HGB CONC 31.8 g/dL (31-35); MEAN CORPUSCULAR VOLUME 99.2 fL (81-99); MONOCYTES # (AUTO) 0.6 (0.2-0.8); MONOCYTES % 9.6 % (4.4-11.3); NEUTROPHILS # (AUTO) 3.7 (2.1-6.9); NEUTROPHILS % 60.2 % (38.7-80.0); PLATELET COUNT 262 x10e3/uL (140-360); RED BLOOD COUNT 3.96 x10e6/uL (3.6-5.1); RED CELL DISTRIBUTION WIDTH 12.6 % (11.7-14.4); WHITE BLOOD COUNT 6.12 x10e3/uL (4.8-10.8)
[2023-11-07 06:29] LABS: ALBUMIN 3.8 g/dL (3.5-5.0); ALBUMIN/GLOBULIN RATIO 1.4 (0.8-2.0); ANION GAP 14.6 mmol/L (8-16); BILIRUBIN,TOTAL 0.8 mg/dL (0.2-1.2); CALCIUM 8.4 mg/dL (8.4-10.2); CREATININE, SERUM 0.79 mg/dL (0.57-1.11); POTASSIUM 3.6 mmol/L (3.5-5.1); TOTAL PROTEIN 6.6 g/dL (6.5-8.1)
[2023-11-07 06:30] LABS: CHOL/HDL RATIO 5.6 (3.0-3.6); MAGNESIUM 1.9 MG/DL (1.3-2.1)
[2023-11-07 06:54] LABS: THYROID STIMULATING HORMONE 3.708 uIU/mL (0.350-4.940)
[2023-11-07] MEDS ORDERED: PANTOPRAZOLE SOD 40 MG TABEC PO SCH (07:30)
[2023-11-07 12:06] LABS: HEPATITIS B SURFACE AG (P) Nonreactive; HEPATITIS C ANTIBODY Nonreactive
[2023-11-07 17:05] LABS: ALBUMIN 4.5 g/dL (3.5-5.0); ALBUMIN/GLOBULIN RATIO 1.4 (0.8-2.0); ANION GAP 14.6 mmol/L (8-16); BILIRUBIN,TOTAL 0.5 mg/dL (0.2-1.2); CALCIUM 9.1 mg/dL (8.4-10.2); CREATININE, SERUM 0.7 mg/dL (0.57-1.11); POTASSIUM 3.6 mmol/L (3.5-5.1); TOTAL PROTEIN 7.7 g/dL (6.5-8.1)
[2023-11-07] MEDS ORDERED: ONDANSETRON HCL 4 MG ORAL DISINTEGRATING TAB PO PRN ×2 (19:30)
[2023-11-07] MEDS: MELATONIN 5 MG TABLET PO PRN (20:46)
[2023-11-08] VITALS (7 sets, daily range): BP systolic 135–146; BP diastolic 80–89; PULSE 67–99; RESP 18; TEMP 97.5–98.7; O2SAT 98–100
[2023-11-08 07:50] LABS: ALBUMIN 3.9 g/dL (3.5-5.0); ALBUMIN/GLOBULIN RATIO 1.4 (0.8-2.0); BILIRUBIN,TOTAL 0.5 mg/dL (0.2-1.2); CALCIUM 8.7 mg/dL (8.4-10.2); CREATININE, SERUM 0.71 mg/dL (0.57-1.11); TOTAL PROTEIN 6.6 g/dL (6.5-8.1)
[2023-11-08 11:46] LABS: ANION GAP 16.7 mmol/L (8-16); POTASSIUM 3.7 mmol/L (3.0-5.1)
== END 2023-11-08 17:35 | disposition home or self-care (01) ==
LOC: ER 01:33 → ERHOLD 02:32 → MED/SURG2 02:56
PROVIDERS: ADMIT Internal Medicine; ATTEND Internal Medicine
DX: R10.13 Epigastric pain (principal); R74.01 Elevation of levels of liver transaminase levels; E78.5 Hyperlipidemia, unspecified; K76.0 Fatty (change of) liver, not elsewhere classified; D68.00 Von Willebrand disease, unspecified; F43.10 Post-traumatic stress disorder, unspecified; F41.9 Anxiety disorder, unspecified; Z90.49 Acquired absence of other specified parts of digestive tract; Z79.899 Other long term (current) drug therapy
CPT/HCPCS: 36415 ×3; 74181; 76705; 80053 ×3; 80061; 80329; 83036; 83690 ×2; 83735; 84443; 85025 ×2; 93005; 94799 ×3; 99252; 99284; G0378 ×3; J2270; J2405; J2470; J2543 ×3; J7030 ×3; S0164 ×3

== ENCOUNTER → 2024-09-27 | Day surgery (SDC) | payer OTHER ==
[~2024-09-27] MED LIST changes: +ASHWAGANDHA300 MG PO; +BERBERINE500 MG PO; +FENTANYL CITRATE/PF 100MCG/2 ML INJ ONE; +HYOSCYAMINE SULFATE 0.5 MG/ML INJ ONE; +KURVELO-28 TAB1 EAC1 PO; +LACTATED RINGER'S 1,000 ML ONE; +LIDOCAINE HCL 2% LOCAL INJ 5 ML SDV VIAL INJ ONE; +MIDAZOLAM HCL 2 MG/2 ML VIAL ONE; +PANTOPRAZOLE SO40 MG PO; +PROPOFOL IV EMULSION 10 MG/ML 20 ML VIAL ONE
[2024-09-27 13:18] VITALS: TEMP 97.1
[2024-09-27 13:45] VITALS: BP 121/78; PULSE 101; RESP 16; O2SAT 97
== END | disposition home or self-care (01) ==
LOC: OR 10:54
PROVIDERS: ATTEND Internal Medicine Gastroenterology
DX: K64.8 Other hemorrhoids (principal); K59.00 Constipation, unspecified; K62.5 Hemorrhage of anus and rectum; K58.9 Irritable bowel syndrome, unspecified; K57.30 Diverticulosis of large intestine without perforation or abscess without bleeding; K21.9 Gastro-esophageal reflux disease without esophagitis; D64.9 Anemia, unspecified; K76.0 Fatty (change of) liver, not elsewhere classified; F41.9 Anxiety disorder, unspecified; E78.5 Hyperlipidemia, unspecified; Z91.041 Radiographic dye allergy status; Z91.014 Allergy to mammalian meats
CPT/HCPCS: 45378; 81025; J1980; J2003; J2250; J2704; J3010; J7121